=== PATIENT | male | born 1965 | race Caucasian/White ===

== ENCOUNTER 2021-01-16 11:28 | Emergency (ER) | payer SELFPAY ==
[~2021-01-16] VITALS: Ht 170.1 cm; Wt 118.0 kg
[2021-01-16] MEDS ORDERED: diphenhydrAMINE 25 MG TAB (BENADRYL) PO ONE (11:45)
[2021-01-16] MEDS ORDERED: FAMOTIDINE 20 MG (PEPCID) TABLET PO ONE (11:45)
--- NOTE | 2021-01-16 11:48 | ED General ---
General Chief Complaint: Allergic Reaction Stated Complaint: HIVES History of Present Illness Date Seen by Provider: Jan 16, 2021 Time Seen by Provider: 11:43 Initial Comments Patient presenting to the emergency department for evaluation of diffuse hives and pruritus that started yesterday around 5 PM. Patient says that he has an allergy to tomatoes but has never been tested for allergies. He says this is happened to him once earlier this year where he received steroids and medications which took his hives away. Patient denies any new soaps detergents medications exposures or anything else that he can think of he denies any d ifficulty breathing or swallowing. He took some Benadryl yesterday but did not take anything today. He is in no acute distress with normal vital signs. Allergies and Home Medications Allergies Coded Allergies: tomato (Verified Allergy, Unknown, 01/16/21) Patient Home Medication List Home Medication List Reviewed: Yes Review of Systems Review of Systems Constitutional: no symptoms reported EENTM: no symptoms reported Respiratory: no symptoms reported Cardiovascular: no symptoms reported Gastrointestinal: no symptoms reported Musculoskeletal: no symptoms reported Skin: pruritus, rash Psychiatric/Neurological: No Symptoms Reported All Other Systems Reviewed Negative Unless Noted: Yes Past Xdvfypd-Dokmxr-Mhogvr Hx Patient Social History Tobacco Use?: Yes Tobacco type used: Cigarettes Smoking Status: Current Everyday Smoker Use of E-Cig and/or Vaping dev: No Substance use?: No Alcohol Use?: No Pt feels they are or have been: No Immunizations Up To Date Influenza Vaccine Up-to-Date: No; Not Current First/Initial COVID19 Vaccinat: Not currently vaccinated Physical Exam Vital Signs Capillary Refill : Height, Weight, BMI Height: '" Weight: lbs. oz. kg; BMI Method: General Appearance: No Apparent Distress, WD/WN HEENT: PERRL/EOMI Neck: Supple Respiratory: Lungs Clear, No Respiratory Distress Cardiovascular: Regular Rate, Rhythm Extremity: Normal Capillary Refill Neurologic/Psychiatric: Alert, Oriented x3 Skin: Warm/Dry, Other (Diffuse hives noted most prominent in the abdomen however he has hives on his face upper and lower extremities. ) Progress/Results/Core Measures Suspected Sepsis SIRS Temperature: Pulse: Respiratory Rate: Blood Pressure / Mean: Results/Orders My Orders Orders - KINZA CARRASCO DO Dexamethasone Injection (Decadron Inje (01/16/21 11:45) Diphenhydramine Tablet (Benadryl Tablet) (01/16/21 11:45) Famotidine Tablet (Pepcid Tablet) (01/16/21 11:45) Vital Signs/I&O Capillary Refill : Progress Note : Progress Note Patient appears well with a patent airway and does not appear to be suffering from anaphylaxis but he definitely is having an allergic reaction to something. Patient says that he now has insurance I told him to call the phone number on the back of his insurance card to get set up to see an center mgr so that he can have further testing done to figure out what he is allergic to. I did prescribe epinephrine pens for him and told him to use them only if he suffers anaphylaxis and how to use them. Patient was given Decadron intramuscularly in addition to Benadryl and Pepcid here. He does not need epinephrine at this time. Patient will be discharged in stable condition told to follow-up as above and come back to emergency department sooner if difficulty breathing swallowing or other general concerns. Patient aware and agreeable with plan and verbalized understanding the above instructions. Departure Impression Primary Impression: Jelani Additional Impression: Allergic reaction Qualified Codes: T78.40XA - Allergy, unspecified, initial encounter Disposition: 01 HOME, SELF-CARE Condition: Stable Departure-Patient Inst. Referrals: NO,LOCAL PHYSICIAN (PCP/Family) Primary Care Physician Patient Instructions: Jelani (MERE) Add. Discharge Instructions: Call your insurance company to get set up to see an screen making supervisor. All discharge instructions reviewed with patient and/or family. Voiced understanding. Scripts Prednisone (Prednisone) 20 Mg Tab 40 MG PO DAILY for 4 Days, #8 TAB 0 Refills Prov: KINZA CARRASCO DO 01/16/21 Famotidine (Pepcid) 40 Mg Tablet 40 MG PO DAILY for 5 Days, #5 TAB Prov: KINZA CARRASCO DO 01/16/21 Diphenhydramine HCl (Benadryl) 25 Mg Capsule 50 MG PO Q6H for 5 Days, #40 CAP Prov: KINZA CARRASCO DO 01/16/21 Epinephrine (Epinephrine) 0.3 Mg/0.3 Ml Auto.injct 0.3 MG IJ ONCE PRN for anaphylaxis, #2 EA Prov: KINZA CARRASCO DO 01/16/21 KINZA CARRASCO DO Jan 16, 2021 11:48
[2021-01-16] MEDS ORDERED: EPIN0.3P18 IJ (11:54)
[2021-01-16] MEDS ORDERED: FAMO40TA72 PO (11:54)
[2021-01-16] MEDS ORDERED: PRD20T PO (11:54)
[2021-01-16] MEDS ORDERED: DIPH25CA79 PO (11:54)
[2021-01-16 12:02] VITALS: BP 162/87
== END 2021-01-16 12:01 | disposition home or self-care (01) ==
LOC: ER FS 11:30
DX: L50.9 Urticaria, unspecified (principal); T78.40XA Allergy, unspecified, initial encounter; F17.210 Nicotine dependence, cigarettes, uncomplicated
CPT/HCPCS: 99284